=== PATIENT | female | born 1975 ===

== ENCOUNTER → 2022-04-09 | Outpatient (CLI) | payer SELFPAY ==
[~2022-04-09] VITALS: Ht 160 cm; Wt 82.6 kg
[~2022-04-09] MED LIST: FERR324T4 PO; FLUO40CA PO; LISI10TA25 PO; OMEG100032 PO; ROSU40TA23 PO
== END | disposition home or self-care (01) ==
LOC: PREOP 05:29
PROVIDERS: ATTEND Obstetrics & Gynecology
DX: Z01.818 Encounter for other preprocedural examination (principal)

== ENCOUNTER 2022-04-15 05:48 | Day surgery (SDC) | payer OTHER ==
[2022-04-15] VITALS (13 sets, daily range): BP systolic 109–143; BP diastolic 54–71
[~2022-04-15] VITALS: Ht 160 cm; Wt 82.6 kg
[2022-04-15] MEDS ORDERED: ceFAZolin INJECTION 2,000 MG in NS (IVPB) 50 ML IV SCH (06:15)
[2022-04-15] MEDS ORDERED: LACTATED RINGERS 1,000 ML IV SCH (06:30)
[2022-04-15 06:47] LABS: EOSINOPHILS # (AUTO) 0.2 10^3/uL (0.0-0.3)
[2022-04-15 06:48] LABS: BASOPHILS # (AUTO) 0.1 10^3/uL (0.0-0.1); BASOPHILS % (AUTO) 1 % (0-10); EOSINOPHILS % (AUTO) 2 % (0-10); HEMATOCRIT 36 % (35-52); HEMOGLOBIN 11.6 g/dL (11.5-16.0); LYMPHOCYTES # (AUTO) 2.3 10^3/uL (1.0-4.0); LYMPHOCYTES % (AUTO) 26 % (12-44); MEAN CORPUSCULAR HEMOGLOBIN 26 pg (25-34); MEAN CORPUSCULAR HGB CONC 32 g/dL (32-36); MEAN CORPUSCULAR VOLUME 80 fL (80-99); MONOCYTES # (AUTO) 0.6 10^3/uL (0.0-1.0); MONOCYTES % (AUTO) 7 % (0-12); NEUTROPHILS # (AUTO) 5.6 10^3/uL (1.8-7.8); NEUTROPHILS % (AUTO) 64 % (42-75); PLATELET COUNT 178 10^3/uL (130-400); WHITE BLOOD COUNT 8.8 10^3/uL (4.3-11.0)
[2022-04-15 06:54] LABS: SMEAR SCAN COMMENT YES
[2022-04-15] MEDS ORDERED: LIDOCAINE PF 2% 5 ML (XYLOCAINE) VIAL ONE (07:00)
[2022-04-15] MEDS ORDERED: ONDANSETRON 4 MG/2 ML (SDV) Z0FRAN ONE (07:00)
[2022-04-15] MEDS ORDERED: ROCURONIUM 10 MG/ML 5 ML SYRINGE IV ONE (07:00)
[2022-04-15] MEDS ORDERED: GLYCOPYRROLATE 0.2 MG/ML (ROBINUL) 2 ML VIAL ONE ×2 (07:00→08:32)
[2022-04-15] MEDS ORDERED: MIDAZOLAM 2 MG/2 ML (VERSED) VIAL ONE (07:00)
[2022-04-15] MEDS ORDERED: NEOSTIGMINE (BLOXIVERZ ) 1 MG/1ML 10 ML VIAL ONE (07:00)
[2022-04-15] MEDS ORDERED: metroNIDAZOLE 500 MG/100 ML IVPB (PRE-MIX) IV ONE (07:00)
[2022-04-15] MEDS ORDERED: proPOfol 200 MG/20 ML (DIPRIVAN) VIAL IV ONE (07:00)
[2022-04-15] MEDS ORDERED: fentaNYL INJ 100 MCG/2 ML AMP ONE ×2 (07:00→08:30)
[2022-04-15] MEDS: LACTATED RINGERS 1,000 ML IV PRN ×2 (07:04→08:07)
--- NOTE | 2022-04-15 07:07 | Discharge Inst-Women's Service ---
Discharge Inst-Women's Serv Depart Medication/Instructions New, Converted or Re-Newed RX: Transmitted to Pharmacy Problems Reviewed?: Yes Consults/Follow Up Additional Follow Up: Yes Orders/Referrals Dr. Mota in 7-10 days and in 8 weeks Activity Activity: Activity as Tolerated Driving Instructions: No Driving for 1 Week NO SMOKING: NO SMOKING Nothing Inside Vagina: No Douching, No Aldie, No Tampons Diet Discharge Diet: No Restrictions Symptoms to Report to : Bleeding Excessive, Pain Increased, Fever Over 101 Degrees F, Vaginal Bleeding Increase, Questions/Concerns For Any Problems or Questions: Contact Your Physician Skin/Wound Care Infection Signs and Symptoms: Increased Redness, Foul Odor of Wound, Increased Drainage, Skin Itchy or Has a Rash, Increased Swelling, Temperature Above 101 F Operative Area Clean and Dry: Keep Incision Clean/Dry Stitches/Angela/Dermabond: Dermabond, Care of Stitches Bathing Instructions: MARIA Franco DO Apr 15, 2022 07:07
[2022-04-15] MEDS ORDERED: DOCU100C37 PO (07:09)
[2022-04-15] MEDS ORDERED: SIME80TA16 PO (07:09)
[2022-04-15] MEDS ORDERED: HYDR-34 PO (07:09)
[2022-04-15] MEDS ORDERED: IBUP-844 PO (07:09)
[2022-04-15] MEDS ORDERED: DOCUSATE SODIUM 100 MG (COLACE) CAP PO PRN (07:15)
[2022-04-15] MEDS ORDERED: SIMETHICONE 80 MG (MYLICON) CHEW PO PRN (07:15)
[2022-04-15] MEDS ORDERED: CEPACOL SORE THROAT-COUGH LOZENGE MM PRN (07:15)
[2022-04-15] MEDS ORDERED: HYDROmorphone 2 MG/ML VIAL (DILAUDID) IV ONE ×2 (07:15→12:45)
[2022-04-15] MEDS ORDERED: ONDANSETRON 4 MG/2 ML (SDV) Z0FRAN IVP PRN (07:15)
[2022-04-15] MEDS ORDERED: ONDANSETRON 4 MG/2 ML (SDV) Z0FRAN IV PRN (07:15)
[2022-04-15] MEDS ORDERED: ZOLPIDEM 5 MG (AMBIEN) TAB PO PRN (07:15)
[2022-04-15] MEDS ORDERED: ANTACID SUSP 30 ML UDC (MYLANTA) PO PRN (07:15)
[2022-04-15] MEDS ORDERED: morphine INJ 10 MG/ML 1ML (SYR OR VIAL) IVP ONE (07:15)
[2022-04-15] MEDS: BUPIVACAINE 0.25% 30 ML (SENSORCAINE) VIAL ONE ×2 (07:53→10:26)
[2022-04-15] MEDS ORDERED: SEVOFLURANE (ULTANE) 15 ML INHAL SOLN ONE (08:30)
[2022-04-15] MEDS ORDERED: KETOROLAC 30 MG/ML VIAL ONE (08:52)
[2022-04-15] MEDS: KETOROLAC 30 MG/ML VIAL IVP PRN ×3 (08:54→22:45)
[2022-04-15] MEDS ORDERED: morphine INJ 10 MG/ML 1ML (SYR OR VIAL) ONE (09:02)
[2022-04-15] MEDS ORDERED: HYDROmorphone 2 MG/ML VIAL (DILAUDID) ONE (09:16)
[2022-04-15] MEDS: LACTATED RINGERS 1,000 ML IV SCH ×3 (10:49→23:15)
[2022-04-15] MEDS: HYDROcodone/APAP 7.5 MG/325 MG (LORTAB, LORCET PLUS) TABLET PO PRN ×2 (11:30→17:47)
--- NOTE | 2022-04-15 12:12 | OPERATIVE REPORT ---
DATE OF SERVICE: 04/15/2022 PREOPERATIVE DIAGNOSES: 1. Abnormal uterine bleeding. 2. Chronic blood loss anemia. POSTOPERATIVE DIAGNOSES: 1. Abnormal uterine bleeding. 2. Chronic blood loss anemia. PROCEDURE: Robotic-assisted total laparoscopic hysterectomy with bilateral salpingo-oophorectomy. SURGEON: Jac Lamb DO PLASTIC PANEL INSTALLER: Nenita Lujan DNP, was necessary for manipulation and retraction throughout the procedure. ANESTHESIA: General endotracheal. ESTIMATED BLOOD LOSS: Minimal. URINE OUTPUT: 50 mL clear at the end of the procedure. FLUIDS: 1300 mL lactated Ringer's solution. FINDINGS: A grossly normal appearing bilateral ovaries, fallopian tubes with evidence of previous tubal ligation, hyperemic and slightly bulky uterus; otherwise, normal-appearing peritoneal cavity. Normal-appearing upper abdominal anatomy, normal appearing external female genitalia. SPECIMEN SENT: Uterus, bilateral fallopian tubes and ovaries. INDICATIONS FOR PROCEDURE: This patient had sought care in my office after previously being evaluated and worked up at the [facility] in [place]. She had an endometrial biopsy, which revealed no signs of malignancy; however, continued to have heavy bleeding issues. She had tried more conservative options in the past for management of heavy bleeding issues without any resolution in her symptoms. She was unable to schedule the procedure at [facility] in [place] therefore made an appointment in my office due to financial situation to proceed with the procedure here at [facility] in [place]. Risks of the procedure were discussed with the patient in detail as well as the option of possible, leaving her ovaries, which the patient opted to have them removed. Risks of bleeding, infection, damage to surrounding structures including, but not limited to bowel, bladder, ureter, kidneys, possible need for reoperation, postoperative complications that may occur, recovery timeframe, risk from anesthesia and even were all discussed. After everything was discussed with the patient in detail, consent was obtained throughout and the patient was taken to the operating room. OPERATIVE REPORT IN DETAIL: Once in the operating room, general anesthesia was found to be adequate. She was placed in dorsal lithotomy position, prepped and draped in normal sterile fashion. Timeout was performed. Carmona catheter was placed using sterile technique. A weighted speculum was inserted to the patient's vagina. Right angle retractor was used to visualize the cervix, which was grasped at 12 o'clock position using a long Allis clamp and 0 Vicryl suture was then placed anterior lip of the cervix and the suture was then used as my retraction point. I then gently sound the uterine cavity, was found to be 8 cm. I selected a 3.5 cm colpotomy ring and an 8 cm manipulator tip. The CJ was assembled and placed with the manipulator tip into the uterus with the balloon was deployed. Colpotomy ring was advanced around the vaginal fornix. I then performed a change of gloves and turned my attention to the abdomen after I removed all the other instruments from the patient's vagina. Once at the abdomen, I introduced the Veress needle subcostally at the midclavicular line on the left until intraperitoneal placement was confirmed using a saline drop test. An opening pressure of 5 mmHg was noted. I proceeded to max pressure of 15 mmHg, at which point, I made an infraumbilical incision with a knife that is 8 mm and directed an 8 mm blunt da Carleen camera trocar through this incision until intraperitoneal placement was confirmed using the da Carleen laparoscope. There was no evidence of damage from entry site. A brief scan of the upper abdominal anatomy appears to be grossly normal and the Veress needle was removed after it was identified and not causing any damage to surrounding structures. I then had the patient placed in steep Trendelenburg and made visualize all my pelvic anatomy as defined in my findings above. I placed two lateral trocars using both 8 mm trocars approximately 8 cm lateral to my infraumbilical trocar. Once both these trocars are in place, I bring in the da Carleen robot and docked in appropriate fashion, I placed a SynchroSeal device in left hand and monopolar carmen in the right hand and performed the following dissection bilaterally starting at the IP ligament, I sealed and transected using the SynchroSeal device. I then grasped the round ligament, which I sealed and transected using the SynchroSeal device. This allows me to grasp the broad ligament, which I sealed and transected using the SynchroSeal device down to the level of the lower uterine segment, at which point I the anterior and posterior leaflets of the broad ligament. The anterior leaflet dissection was taken around the anterior vaginal fornix and posterior leaflets was taken around the posterior vaginal fornix. This allows me to skeletonize the uterine vessels laterally, which I sealed and transected using the SynchroSeal device. I then created a colpotomy at 12 o'clock position using monopolar carmen and took this circumferentially around the vaginal fornix amputating the cervix away from the vagina. The entire specimen was then removed through the vagina. I then closed the vaginal cuff using 2-0 V-Loc in a running fashion. There was no active bleeding noted from any of my dissection planes. I then undocked the da Carleen robot and proceeded with remainder of the case laparoscopically. I copiously irrigated the pelvis using normal saline. Once again, there was no active bleeding noted from any of my dissection planes. I placed Surgiflo hemostatic agent over all my planes of dissection. I had the patient taken out of steep Trendelenburg where I removed the lateral trocars under direct visualization of the laparoscope and infraumbilical trocars left in place to release insufflation and to introduce 10 mL of 0.25% Marcaine into the peritoneal cavity for postoperative pain management. I then removed this trocar as well. The skin reapproximated using 4-0 Monocryl in interrupted subcuticular stitches. Dermabond was applied to all the incisions. Band-Aids were placed over all the incision. A Carmona catheter was left in place. The patient tolerated the procedure well and sent to recovery area in stable condition. Lap and sponge count was correct at the end of procedure. Instrument counts correct as well. Two grams of Ancef and 500 mg of Flagyl were given preoperatively for infection prophylaxis. Job ID: [id number] DocumentID: [id number] Dictated Date: 04/15/2022 09:37:01 Front Desk Worker Date: 04/15/2022 12:10:17 Dictated By: JAC LAMB DO
[2022-04-16 01:45] VITALS: BP 118/63
[2022-04-16] MEDS ORDERED: IBUPROFEN 600 MG (MOTRIN) TAB PO ONE (05:44)
[2022-04-16] MEDS ORDERED: IBUPROFEN 600 MG (MOTRIN) TAB PO PRN ×2 (06:00)
[2022-04-16 08:30] VITALS: BP 121/62
[2022-04-16] MEDS: HYDROcodone/APAP 7.5 MG/325 MG (LORTAB, LORCET PLUS) TABLET PO PRN (08:48)
--- NOTE | 2022-04-16 11:13 | Anesthesia-General Post-Op ---
General Patient Condition Mental Status/LOC: Same as Preop Cardiovascular: Satisfactory Nausea/Vomiting: Absent Respiratory: Satisfactory Pain: Controlled Complications: Absent Post Op Complications Complications None Follow Up Care/Instructions Patient Instructions None needed. Anesthesia/Patient Condition Patient Condition Patient is doing well, having some pain which is to be expected, stable vital signs, no apparent adverse anesthesia problems. No complications reported per nursing. POLA YOON DO Apr 16, 2022 11:13
[2022-04-16 11:45] VITALS: BP 121/62
[2022-04-20] MEDS ORDERED: IBUPROFEN 600 MG (MOTRIN) TAB PO PRN (12:00)
== END 2022-04-16 11:45 | disposition home or self-care (01) ==
LOC: SDC 05:48 → WS 09:45 → SDC 04-16 11:45
PROVIDERS: ATTEND Obstetrics & Gynecology
DX: D25.1 Intramural leiomyoma of uterus (principal); N83.8 Other noninflammatory disorders of ovary, fallopian tube and broad ligament; N83.201 Unspecified ovarian cyst, right side; D50.0 Iron deficiency anemia secondary to blood loss (chronic)
CPT/HCPCS: 36415; 84703; 85025; 86850; 86900; 86901; 87081; 94664